=== PATIENT | female | born 2000 | race American Indian/Alaskan Native ===

== ENCOUNTER 2022-01-09 21:39 | Emergency (ER) | payer BC ==
[2022-01-09] MEDS ORDERED: ONDANSETRON 4 MG/2 ML INJ IV ONE (23:04)
[2022-01-09] MEDS ORDERED: SODIUM CHLORIDE 0.9% 1000 ML 1,000 ML IV ONE (23:04)
--- NOTE | 2022-01-09 23:20 | Emergency Department Report ---
ED General Adult HPI - General Chief complaint: Nausea/Vomiting/Diarrhea Stated complaint: ABD PAIN/NAUSEA Time Seen by Provider: 01/09/22 23:03 Source: patient Mode of arrival: Ambulatory Limitations: No Limitations - History of Present Illness Initial comments: Patient 21-year-old female who presents for nausea vomiting diarrhea x3 days. Patient denies fevers or chills. Does not recall suspicious food. Last menstrual cycle was 12/12/21. Symptoms exacerbated by p.o. intake, relieved by nothing tried. pt does endorse urinary frequency and urgency. Denies vaginal discharge, pt has no hx of renal stones. pt advises "I believe I have a UTI. Severity scale (0 -10): 0 - Related Data Previous Rx's Medication Instructions Recorded Last Taken Type cephALEXin [Keflex] 500 mg PO BID 7 Days #14 cap 01/10/22 Unknown Rx Allergies Allergy/AdvReac Type Severity Reaction Status Date / Time grass pollen Allergy Unknown Verified 01/09/22 22:36 ED Review of Systems ROS: Stated complaint: ABD PAIN/NAUSEA Other details as noted in HPI Constitutional: denies: chills, fever Eyes: denies: eye pain, eye discharge, vision change ENT: denies: ear pain, throat pain Respiratory: denies: cough, shortness of breath, wheezing Cardiovascular: denies: chest pain, palpitations Endocrine: no symptoms reported Gastrointestinal: abdominal pain, nausea, vomiting, diarrhea. denies: constipation, hematemesis, melena Genitourinary: denies: urgency, dysuria, frequency, hematuria, discharge Musculoskeletal: as per HPI Skin: denies: rash, lesions Neurological: denies: headache, weakness, paresthesias Psychiatric: denies: anxiety, depression Hematological/Lymphatic: denies: easy bleeding, easy bruising ED Past Medical Hx - Past Medical History Previous Medical History?: Yes Additional medical history: anemia - Surgical History Past Surgical History?: No - Medications Home Medications: Home Medications Medication Instructions Recorded Confirmed Last Taken Type cephALEXin [Keflex] 500 mg PO BID 7 Days #14 cap 01/10/22 Unknown Rx ED Physical Exam - General Limitations: No Limitations General appearance: alert, in no apparent distress - Head Head exam: Present: normocephalic, normal inspection - Eye Eye exam: Present: normal appearance, EOMI Pupils: Present: normal accommodation - ENT ENT exam: Present: mucous membranes moist - Neck Neck exam: Present: normal inspection, full ROM. Absent: tenderness - Respiratory Respiratory exam: Present: normal lung sounds bilaterally. Absent: respiratory distress, wheezes, stridor - Cardiovascular Cardiovascular Exam: Present: regular rate, normal rhythm, normal heart sounds. Absent: systolic murmur, diastolic murmur, rubs, gallop - GI/Abdominal GI/Abdominal exam: Present: soft, normal bowel sounds. Absent: distended, tenderness, guarding, rebound, rigid, bruit, hernia - Rectal Rectal exam: Present: deferred - Extremities Exam Extremities exam: Present: normal inspection, full ROM, normal capillary refill. Absent: tenderness - Back Exam Back exam: Present: normal inspection, full ROM. Absent: CVA tenderness (R), CVA tenderness (L) - Neurological Exam Neurological exam: Present: alert, oriented X3, CN II-XII intact - Expanded Neurological Exam Expanded Patient oriented to: Present: person, place, time Speech: Present: fluid speech Best Eye Response (Jaqueline): (4) open spontaneously Best Motor Response (Jaqueline): (6) obeys commands Best Verbal Response ([place]): (5) oriented Jaqueline Total: 15 - Psychiatric Psychiatric exam: Present: normal affect, normal mood - Skin Skin exam: Present: warm, dry, intact, normal color. Absent: rash ED Course Vital Signs 01/09/22 22:37 Temperature 98 F Pulse Rate 84 Respiratory 12 Rate Blood Pressure 128/86 [Right] O2 Sat by Pulse 97 Oximetry ED Medical Decision Making - Lab Data Result diagrams: 01/09/22 23:13 01/09/22 23:13 Labs 01/09/22 01/09/22 01/09/22 23:13 23:13 Unknown WBC 7.4 RBC 4.17 Hgb 11.8 Hct 34.8 MCV 84 MCH 28 MCHC 34 RDW 15.9 H Plt Count 274 Lymph % (Auto) 28.3 [place] % (Auto) 9.2 H Eos % (Auto) 0.2 Baso % (Auto) 0.6 Lymph # (Auto) 2.1 [place] # (Auto) 0.7 Eos # (Auto) 0.0 Baso # (Auto) 0.0 Seg Neutrophils % 61.7 Seg Neutrophils # 4.6 Sodium 137 Potassium 3.4 L Chloride 98.4 Carbon Dioxide 22 Anion Gap 20 BUN 8 Creatinine 0.9 Estimated GFR > 60 BUN/Creatinine Ratio 9 Glucose 88 Calcium 9.9 Total Bilirubin 0.30 AST 17 ALT 8 Alkaline Phosphatase 105 Total Protein 8.2 Albumin 4.9 Albumin/Globulin Ratio 1.5 Lipase 29 Urine Color Straw Urine Turbidity Slightly cloudy Urine pH 6.0 Ur Specific [place] 1.010 Urine Protein 30 mg/dl Urine Glucose (UA) Negative Urine Ketones Trace Urine Blood Moderate A Urine Nitrite Negative Ur Reducing Substances Not Reportable Urine Bilirubin Negative Urine Ictotest Not Reportable Urine Urobilinogen < 2.0 Ur Leukocyte Esterase Large Urine WBC (Auto) > 182.0 H Urine RBC (Auto) 17.0 U Epithel Cells (Auto) 34.0 H Urine WBC Clumps 1+ Urine Yeast (Budding) 3+ Urine HCG, Qual 01/09/22 Unknown WBC RBC Hgb Hct MCV MCH MCHC RDW Plt Count Lymph % (Auto) [place] % (Auto) Eos % (Auto) Baso % (Auto) Lymph # (Auto) [place] # (Auto) Eos # (Auto) Baso # (Auto) Seg Neutrophils % Seg Neutrophils # Sodium Potassium Chloride Carbon Dioxide Anion Gap BUN Creatinine Estimated GFR BUN/Creatinine Ratio Glucose Calcium Total Bilirubin AST ALT Alkaline Phosphatase Total Protein Albumin Albumin/Globulin Ratio Lipase Urine Color Urine Turbidity Urine pH Ur Specific [place] Urine Protein Urine Glucose (UA) Urine Ketones Urine Blood Urine Nitrite Ur Reducing Substances Urine Bilirubin Urine Ictotest Urine Urobilinogen Ur Leukocyte Esterase Urine WBC (Auto) Urine RBC (Auto) U Epithel Cells (Auto) Urine WBC Clumps Urine Yeast (Budding) Urine HCG, Qual Negative - Medical Decision Making Patient advises symptoms are resolved, now tolerating p.o. intake without nausea vomiting. Patient denies fevers or chills. There is no back pain no CVA tenderness. UA noted for leukocytes, RBCs, yeast, WBCs with cluster. HCG is negative. Patient denies vaginal discharge, declines CT scan without renal stones. Patient treated with Rocephin, Diflucan, be DC'd to home with prescriptions. Patient advised to follow-up with primary care in 2 days., Patient advised to return to emergency department should symptoms worsen. Take all medications as prescribed, patient declines to discuss possibility of STI declines vaginal exam advises he has no vaginal discharge and is not concerned for STI. Plan treat for UTI as above. This is not likely pyelonephritis there is no fever, there is no CVA tenderness crease pain or voiding. No history of renal stones, patient is tolerating p.o. intake without nausea vomiting at this time patient is voiding , without pain at this time. Critical care attestation.: If time is entered above; I have spent that time in minutes in the direct care of this critically ill patient, excluding procedure time. ED Disposition Clinical Impression: UTI (urinary tract infection) Qualifiers: Urinary tract infection type: acute cystitis Hematuria presence: without hematuria Qualified Code(s): N30.00 - Acute cystitis without hematuria Disposition: HOME / SELF CARE / HOMELESS Is pt being admited?: No Does the pt Need Aspirin: No Condition: Stable Instructions: Urinary Tract Infection, Adult Additional Instructions: Take medications as prescribed, follow-up with your doctor in 2 to 3 days. Return to emergency department should symptoms worsen. Prescriptions: cephALEXin [Keflex] 500 mg PO BID 7 Days #14 cap Referrals: [facility] [Provider Group] - 3-5 Days Forms: Work/School Release Form(ED) Time of Disposition: 02:07
[2022-01-09 23:41] LABS: Basophils % (Auto) 0.6 % (0.0-1.8); Eosinophils % (Auto) 0.2 % (0.0-4.3); Hematocrit 34.8 % (30.3-42.9); Hemoglobin 11.8 gm/dl (10.1-14.3); Lymphocytes # (Auto) 2.1 K/mm3 (1.2-5.4); Lymphocytes % (Auto) 28.3 % (13.4-35.0); Mean Corpuscular HGB Conc 34 % (30-34); Mean Corpuscular Volume 84 fl (79-97); Monocytes # (Auto) 0.7 K/mm3 (0.0-0.8); Monocytes % (Auto) 9.2 % (0.0-7.3); Platelet Count 274 K/mm3 (140-440); Red Blood Count 4.17 M/mm3 (3.65-5.03); Red Cell Distribution Width 15.9 % (13.2-15.2)
[2022-01-09 23:55] LABS: HCG Qualitative,Urine Negative (Negative)
[2022-01-09 23:55] LABS: Alanine Aminotransferase 8 units/L (7-56); Albumin 4.9 g/dL (3.9-5); BUN/Creatinine Ratio 9; Blood Urea Nitrogen 8 mg/dL (7-17); Calcium 9.9 mg/dL (8.4-10.2); Hemolysis Index 7
[2022-01-09 23:56] LABS: Color,Urine Straw (Yellow)
[2022-01-10] LABS: Bilirubin,Urine Negative (Negative); Blood,Urine Moderate (Negative); Urobilinogen,Urine < 2.0 mg/dL (<2.0)
[2022-01-10 00:01] LABS: WBC,Urine > 182.0 /HPF (0.0-6.0)
[2022-01-10] MEDS ORDERED: cefTRIAXone/NS 1 GM/50 ML 1 GM/50 ML BAG IV ONE (02:00)
[2022-01-10] MEDS ORDERED: FLUCONAZOLE 200 MG TAB PO ONE (02:00)
[2022-01-10 02:42] VITALS: BP 127/78
== END 2022-01-10 02:45 | disposition home or self-care (01) ==
LOC: ED 21:39
DX: N39.0 Urinary tract infection, site not specified (principal); Z91.048 Other nonmedicinal substance allergy status
CPT/HCPCS: 36415; 80053; 81001; 81025; 83690; 85025; 96361; 96365; 96375; 99283; J0696; J2405; J7030; Q0162

== ENCOUNTER 2022-04-09 07:08 | Emergency (ER) | payer BC ==
[2022-04-09 07:30] VITALS: BP 125/99
== END 2022-04-09 08:30 | disposition left against medical advice (07) ==
LOC: ED 07:08
DX: R11.0 Nausea (principal); Z53.21 Procedure and treatment not carried out due to patient leaving prior to being seen by health care provider